=== PATIENT | female | born 1960 | race Caucasian/White ===

== ENCOUNTER 2016-07-11 10:24 | Emergency (ER) | payer MEDICAID ==
[~2016-07-11] VITALS: Ht 160 cm; Wt 119.0 kg
[2016-07-11 11:11] LABS: URINE BILIRUBIN - DIPSTICK NEGATIVE (NEGATIVE); URINE BLOOD DIPSTICK NEGATIVE (NEGATIVE); URINE CLARITY CLEAR; URINE COLOR YELLOW; URINE GLUCOSE - DIPSTICK NEGATIVE (NEGATIVE); URINE KETONE NEGATIVE (NEGATIVE); URINE LEUK ESTERASE TRACE (NEGATIVE); URINE NITRITE - DIPSTICK NEGATIVE (Negative); URINE PH 5.5 (4.5-8.0); URINE PROTEIN - DIPSTICK NEGATIVE (NEG-TRACE); URINE SPECIFIC GRAVITY >=1.030; URINE UROBILINOGEN - DIPSTICK 0.2 E.U./dL (0.2)
[2016-07-11] MEDS ORDERED: LEVOTHYROXIN25 MC1 PO (11:16)
[2016-07-11] MEDS ORDERED: SIMVASTATIN20 MG PO (11:16)
[2016-07-11] MEDS ORDERED: CELEXA20 MG PO (11:17)
[2016-07-11] MEDS ORDERED: MELOXICAM7.5 MG PO (11:17)
[2016-07-11] MEDS ORDERED: HYZAAR1 TA1 PO (11:18)
[2016-07-11] MEDS ORDERED: VITAMIN D50000 UN1 PO (11:18)
[2016-07-11] MEDS ORDERED: VOLTAREN - GENE75 MG PO (11:19)
[2016-07-11] MEDS ORDERED: DULOXETINE HCL60 MG PO (11:20)
[2016-07-11] MEDS ORDERED: FLEXERIL PO (11:32)
[2016-07-11] MEDS ORDERED: NORCO1 TA1 PO (11:32)
[2016-07-11 11:39] VITALS: BP 139/74
== END 2016-07-11 11:39 | disposition home or self-care (01) | DRG 552 ==
LOC: ED 10:24
PROVIDERS: Emergency Medicine
DX: M62.830 Muscle spasm of back (principal)